=== PATIENT | female | born 1970 | race African-American/Black ===

== ENCOUNTER 2018-01-23 08:51 | Inpatient (IN) ==
[2018-01-23 09:56] LABS: BILIRUBIN URINE NEGATIVE (NEGATIVE); BLOOD URINE NEGATIVE (NEGATIVE); CLARITY CLEAR (CLEAR); COLOR YELLOW; GLUCOSE URINE NEGATIVE (NEGATIVE); KETONE URINE TRACE mg/dL (NEGATIVE); LEUKOCYTES URINE NEGATIVE (NEGATIVE); NITRITE URINE NEGATIVE (NEGATIVE); PROTEIN URINE 1+(30 mg/dL) mg/dL (NEGATIVE); SP GRAVITY URINE 1.015; UROBILINOGEN URINE NORMAL
[2018-01-23 10:02] LABS: URINE BACTERIA 1+ /HFP; URINE EPITHELIAL CELLS >10 /HPF (<10); URINE WBC <10 /HPF (<10); URINE YEAST PRESENT /HPF
[2018-01-23 10:03] LABS: URINE SOURCE CLEAN CATCH
[2018-01-23 10:11] LABS: AGAP 14; BASO# 0.01 X1000 (0.0-0.2); BASO% 0.1 % (0.0-0.8); BUN 5 mg/dL (8-22); CHLORIDE 101 mmol/L (98-107); EOS# 0.03 X1000 (0.0-0.7); EOS% 0.2 % (0.0-10.0); GLUCOSE 111 mg/dL (70-104); HEMATOCRIT 34.8 % (37.0-47.0); IMM GRAN# 0.03 X1000 (0.0-0.04); IMM GRAN% 0.2 % (0.0-0.5); LYMPH# 1.43 X1000 (1.2-3.4); LYMPH% 9.4 % (20.5-51.1); MCH 22.1 PG (27-31); MCHC 31.6 g/dL (33-37); MCV 69.9 FL (81-99); MONO# 1.31 X1000 (0.11-0.59); MONO% 8.6 % (1.7-9.3); MPV 10.3 FL (7.4-10.4); NEUT# 12.47 X1000 (1.4-6.5); NEUT% 81.5 % (42.2-75.2); PLT 220 X1000 (130-400); POTASSIUM 3.4 mmol/L (3.5-5.1); RBC 4.98 XMIL (4.2-5.4); RDW 21.3 % (11.5-14.5); SODIUM 139 mmol/L (136-145); TCO2 23 mmol/L (25-35); WBC 15.28 X1000 (4.8-10.8)
[2018-01-23 10:12] LABS: ALBUMIN 4.1 g/dL (3.5-5.0); ALKALINE PHOSPHATASE 97 U/L (32-104); AMYLASE 40 U/L (20-200); CALCIUM 9.1 mg/dL (8.8-10.2); COSMO 275; CREATININE 0.5 mg/dL (0.5-0.9); GOT 15 U/L (10-30); GPT 13 U/L (10-36); LIPASE 24 U/L (13-60); TOTAL PROTEIN 7.6 g/dL (6.3-8.3)
[2018-01-23] MEDS ORDERED: NS 1,000 ML IV ONE ×2 (10:14→13:31)
--- NOTE | 2018-01-23 11:20 | Diag Imaging Result Doc PS360 ---
EXAM: CT ABD/PELVIS W/IV CONT ONLY HISTORY: abdominal pain TECHNIQUE: CT abdomen and pelvis with intravenous contrast COMPARISON: 06/28/2011 FINDINGS: The gallbladder, spleen, pancreas, and adrenal glands are normal. There are several tiny scattered hepatic cysts. Normal enhancement of the kidneys. There is mild left-sided hydronephrosis. This is slightly more prominent than on the prior study. Normal aorta. There are inflammatory changes about the ascending colon. There is a small area of focal perforation. No abscess. No distinct mass. Normal appendix. No bowel obstruction. The uterus is enlarged containing multiple partially calcified fibroids. The uterus measures over 12 cm in length. The appearance is fairly similar to that of the prior exam. There are also small bilateral ovarian cysts. The largest arises from the right ovary measuring 3.2 cm. Urinary bladder is mildly distended. IMPRESSION: 1.Focal perforation adjacent to the ascending colon. 2.Multilobulated uterus containing fibroids 3.Ovarian cysts ER called. This exam was performed using automated exposure control, adjustment of mA or kV according to patient size, and/or use of iterative reconstruction technique. Electronically signed by Stewart Gomez 01/23/2018 11:18 AM
[2018-01-23] MEDS ORDERED: MORPHINE IV ONE (12:12)
[2018-01-23] MEDS ORDERED: ZOFRAN ONE (12:22)
[2018-01-23] MEDS ORDERED: ZOFRAN IV ONE (12:27)
[2018-01-23] MEDS ORDERED: ZOFRAN IV PRN (13:31)
[2018-01-23] MEDS ORDERED: NS 0 ML ONE (13:54)
[2018-01-23] MEDS: ZOSYN 3.375 GM in NS 50 ML IV SCH ×2 (14:13→20:21)
--- NOTE | 2018-01-23 14:19 | HISTORY AND PHYSICAL ---
CHIEF COMPLAINT: Abdominal pain. HISTORY OF PRESENT ILLNESS: This is a 47-year-old female who has a three-day history of constant, moderately severe right-sided abdominal pain with associated nausea and chills, but no fever. No vomiting. She has also had some diarrhea previously. She has never had a similar episode and normally has soft, brown bowel movements regularly. She has never had a colonoscopy. She has not noticed any blood in her stool. Her pain is worsened with lying on the right side, lessened with morphine and lying still. PAST MEDICAL HISTORY: Anemia. PAST SURGICAL HISTORY: C section. ALLERGIES: None. She has had diarrhea after Augmentin in the past. HOME MEDICATIONS: None. FAMILY HISTORY: Mother had colon cancer. SOCIAL HISTORY: She smokes ten cigarettes per day and drinks one or two alcoholic drinks occasionally. No illicit drug use. REVIEW OF SYSTEMS: Ten systems reviewed and negative except as noted above. PHYSICAL EXAM: VITAL SIGNS: Temperature 99.0, pulse 84, respirations 18, blood pressure 120/85, O2 saturation 98%. GENERAL: Well developed, well nourished female in no distress. She looks her stated age. HEENT: Normocephalic, atraumatic. Extraocular muscles intact. Pupils equal, round, and reactive to light. Sclerae anicteric. Moist mucous membranes. NECK: Supple. No thyromegaly. LYMPH: No cervical, supraclavicular, or periumbilical lymph nodes appreciated. CV: Regular rate and rhythm. RESPIRATORY: Bilateral equal breath sounds. No work of breathing. GI: Soft. Nondistended. No organomegaly or mass. She has moderate tenderness on the right side of her abdomen. No rebound or guarding. No generalized peritonitis. EXTREMITIES: No clubbing, cyanosis, or edema. SKIN: Warm, dry, and no rash. LABORATORY DATA: White blood cell count 15,000, hemoglobin 11, hematocrit 34.8, platelet count 220,000. Sodium 139, potassium 3.4, chloride 101, CO2 23, BUN 5, creatinine 0.5, glucose 111. Liver function tests normal. Amylase and lipase normal. Urinalysis negative. Urine test negative. IMAGING: Abdominal/pelvis CT scan today shows inflammatory changes around the ascending colon with a focal area of perforation. No large amount of free fluid or free air. No abscess. No definitive mass. Normal appendix. No bowel obstruction. There are bilateral ovarian cysts and a fibroid uterus. ASSESSMENT AND PLAN: A 47-year-old female with perforated viscus. Appears to be a contained microperforation. Etiology is unknown. She does admit to eating some fish within the last week but it was advertised as boneless. We are planning initial conservative management with bowel rest, starting her on Zosyn and giving her intravenous fluids. If she shows clinical improvement enough to resolve her symptoms, then she would eventually need a followup colonoscopy. If she does not improve or worsens, she will need exploratory laparotomy with probable right hemicolectomy. cc: Benedict Pizano MD
[2018-01-23] MEDS ORDERED: TYLENOL ONE (14:27)
[2018-01-23] MEDS ORDERED: TYLENOL PR ONE ×2 (14:38→14:41)
[2018-01-23] MEDS ORDERED: BLISTEX MEDICATED BERRY LIP BALM TOP PRN (15:37)
[2018-01-23 17:05] LABS: EOS# 0.04 X1000 (0.0-0.7); EOS% 0.3 % (0.0-10.0); HEMATOCRIT 31.9 % (37.0-47.0); HEMOGLOBIN 10.1 g/dL (12.0-16.0); IMM GRAN# 0.03 X1000 (0.0-0.04); IMM GRAN% 0.3 % (0.0-0.5); LYMPH# 2.05 X1000 (1.2-3.4); LYMPH% 17.8 % (20.5-51.1); MCH 22.3 PG (27-31); MCHC 31.7 g/dL (33-37); MCV 70.4 FL (81-99); MONO# 0.83 X1000 (0.11-0.59); MONO% 7.2 % (1.7-9.3); MPV 10.7 FL (7.4-10.4); NEUT# 8.58 X1000 (1.4-6.5); NEUT% 74.4 % (42.2-75.2); PLT 191 X1000 (130-400); RBC 4.53 XMIL (4.2-5.4); RDW 21.1 % (11.5-14.5); WBC 11.53 X1000 (4.8-10.8)
[2018-01-23 17:16] LABS: AGAP 14; BUN 4 mg/dL (8-22); CALCIUM 8.8 mg/dL (8.8-10.2); CHLORIDE 102 mmol/L (98-107); COSMO 274; CREATININE 0.6 mg/dL (0.5-0.9); ESTIMATED GFR > 60; GLUCOSE 88 mg/dL (70-104); POTASSIUM 3.1 mmol/L (3.5-5.1); SODIUM 139 mmol/L (136-145); TCO2 23 mmol/L (25-35)
[2018-01-23] MEDS: MORPHINE IV PRN (18:27)
[2018-01-24] MEDS: ZOSYN 3.375 GM in NS 50 ML IV SCH ×4 (02:38→20:54)
[2018-01-24 06:44] LABS: BASO# 0.01 X1000 (0.0-0.2); BASO% 0.1 % (0.0-0.8); EOS# 0.06 X1000 (0.0-0.7); EOS% 0.5 % (0.0-10.0); HEMATOCRIT 31.4 % (37.0-47.0); HEMOGLOBIN 9.7 g/dL (12.0-16.0); LYMPH# 1.49 X1000 (1.2-3.4); LYMPH% 13.4 % (20.5-51.1); MCH 21.8 PG (27-31); MCHC 30.9 g/dL (33-37); MCV 70.7 FL (81-99); MONO# 0.79 X1000 (0.11-0.59); MONO% 7.1 % (1.7-9.3); NEUT% 78.9 % (42.2-75.2); PLT 199 X1000 (130-400); RBC 4.44 XMIL (4.2-5.4); RDW 21.1 % (11.5-14.5); WBC 11.15 X1000 (4.8-10.8)
--- NOTE | 2018-01-24 06:45 | GENERAL SURGERY PROGRESS NOTE ---
DATE: 01/24/2018 SUBJECTIVE: The patient says she still hurts on the right side but is slightly better than yesterday. No nausea or vomiting overnight. OBJECTIVE: Vital Signs: Temperature 100.0 degrees, pulse 85, respirations 18, blood pressure 117/54, O2 saturation 95%. General: She is alert and oriented x4. No acute distress. CV: Regular rate and rhythm. Respiratory: Bilateral breath sounds. No work of breathing. Gastrointestinal: Soft and nondistended. Mildly tender on the right side of the abdomen. No rebound or guarding. Laboratory: Pending today. ASSESSMENT AND PLAN: A 47-year-old female with micro-contained perforation of the right colon of unclear etiology. She seems to be mildly improved. We will continue with bowel rest and intravenous antibiotics. I will follow up her x-ray and labs today, and may let her have sips of clears later. cc: Benedict Pizano MD
[2018-01-24 06:53] LABS: AGAP 13; BUN 5 mg/dL (8-22); CALCIUM 8.8 mg/dL (8.8-10.2); CHLORIDE 102 mmol/L (98-107); COSMO 274; CREATININE 0.5 mg/dL (0.5-0.9); ESTIMATED GFR > 60; GLUCOSE 91 mg/dL (70-104); POTASSIUM 3.3 mmol/L (3.5-5.1); SODIUM 139 mmol/L (136-145); TCO2 24 mmol/L (25-35)
--- NOTE | 2018-01-24 06:59 | PROVIDER DOCUMENTATION ---
This chart was entered by Connie Raya Scribe, acting as scribe for Chantel Gillis CRNP. HPI-Abdominal Pain/GI Problem - General Chief Complaint: Abdominal Pain Stated Complaint: ABD/SIDE PAIN Time Seen by Provider: 01/23/18 09:20 Source: patient Allergies/Adverse Reactions: Patient Allergies Allergy/AdvReac Type Severity Reaction Status Date / Time amoxicillin [From Augmentin] Allergy NAUSEA/VOMI Verified 01/23/18 10:36 TING clavulanic acid Allergy NAUSEA/VOMI Verified 01/23/18 10:36 [From Augmentin] TING Home Medications: Home Medication List Medication Instructions Recorded Confirmed Last Taken Type NK [No Home Medications] 01/23/18 01/23/18 Unknown History - History of Present Illness-ABD Nature of Presenting Problems: Patient is a 47 year old female who presents to the ED with RLQ abdominal pain. Patient states nausea and fever. Patient states symptoms have been present for 3 days. Patient states last BM was this morning. Abdominal Pain Onset Location: reports: RLQ Pain Radiation: reports: no radiation Quality of Pain: reports: pressure Severity in ED: reports: mild Onset/Duration: reports: 3 days ago Timing: reports: still present Activities at Onset: reports: light activity Modifying Factors: improves with: nothing Associated Symptoms: reports: fever/chills (fever), nausea Last BM: this morning Dark Stools Present?: reports: none noticed Rectal Bleeding: reports: none Rectal Pain: reports: none Emesis Description: reports: none Bruising or Bleeding Gums?: No Similar Symptoms Previously?: Yes (present for 3 days) Recently seen or treated by another doctor?: No Review of Systems - Adult - REVIEW OF SYSTEMS - ADULT Constitutional: reports: fever. denies: chills, fatique Eyes: reports: no symptoms reported Ears, Nose, Mouth & Throat: reports: no symptoms reported Cardiovascular: reports: no symptoms reported Respiratory: reports: no symptoms reported Gastrointestinal: reports: abdominal pain (RLQ), nausea. denies: diarrhea, vomiting Genitourinary: reports: no symptoms reported Musculoskeletal: reports: no symptoms reported Integumentary: reports: no symptoms reported Neurological: reports: no symptoms reported Psychiatric: reports: no symptoms reported Endocrine: reports: no symptoms reported Hematologic/Lymphatic: reports: no symptoms reported Allergic/Immunologic: reports: no symptoms reported All Other Systems: Reviewed and Negative Past History - Adult - PAST MEDICAL HISTORY-ADULT Review of Records: reports: Nursing Assessment Review, Medications Reviewed, Social history reviewed & non-contributory. Major Childhood Illnesses: reports: denies history Cardiovascular: reports: denies history Respiratory: reports: denies history Gastrointestinal: reports: denies history Obstetrical/Gynecological: reports: denies history Genitourinary: reports: denies history Musculoskeletal: reports: denies history Neurological: reports: denies history Psychiatric: reports: denies history Endocrine/Immune: reports: denies history Other Conditions: reports: denies history - PRIOR SURGERIES/PROCEDURES Surgical/Procedure History: reports: reviewed, not pertinent - IMMUNIZATION STATUS Childhood Immunizations: See Nurse Assessment Flu Vaccine: See Nurse Assessment - FAMILY HISTORY Family History: reviewed, not pertinent - SOCIAL HISTORY Smoking: denies Substance Use: denies Physical Exam-General - PHYSICAL EXAM-ADULT Initial Vital Signs Reviewed: Yes - CONSTITUTIONAL General Appearance: alert, no apparent distress - EYES Eyes: PERRL/EOMI, pink conjunctivae - HEAD, EARS, NOSE, MOUTH & THROAT HENMT: normal ENT inspection - NECK Neck: normal inspection - RESPIRATORY Respiratory: chest non-tender, lungs clear, normal breath sounds - CARDIOVASCULAR Cardiovascular: normal peripheral pulses, regular rate, rhythm - GASTROINTESTINAL (ABDOMEN) Abdominal Exam: normal bowel sounds, soft, tenderness (RLQ) - MUSCULOSKELETAL Extremity: non-tender, normal gait, normal inspection - SKIN Integumentary: normal color, normal turgor, warm/dry - NEUROLOGIC Neurologic: grossly normal, no motor/sensory deficits - PSYCHIATRIC Psych/Mental Status: normal mood/affect, oriented x 3 Progress - PLAN OF CARE/RESULTS Progress/Plan/Lab Results: Vital Signs - 8 hr 01/23/18 09:10 Temperature 99.0 F Pulse Rate 88 Respiratory Rate 18 Blood Pressure 138/66 O2 Sat by Pulse Oximetry 96 1140: Dr. Dowling aware of ABD CT results. 1230: Dr Pizano at bedside with patient. will admit to Dr Pizano and send to [facility] 1245: Dr Dowling aware of patient's transfer to [facility]. Result Diagrams: 01/24/18 06:00 01/24/18 06:00 - CT/MRI 1 CT Study: Abdomen, Pelvis Impression: See EMR Report (EXAM: CT ABD/PELVIS W/IV CONT ONLY HISTORY: abdominal pain TECHNIQUE: CT abdomen and pelvis with intravenous contrast COMPARISON: 06/28/2011 FINDINGS: The gallbladder, spleen, pancreas, and adrenal glands are normal. There are several tiny scattered hepatic cysts. Normal enhancement of the kidneys. There is mild left-sided hydronephrosis. This is slightly more prominent than on the prior study. Normal aorta. There are inflammatory changes about the ascending colon. There is a small area of focal perforation. No abscess. No distinct mass. Normal appendix. No bowel obstruction. The uterus is enlarged containing multiple partially calcified fibroids. The uterus measures over 12 cm in length. The appearance is fairly similar to that of the prior exam. There are also small bilateral ovarian cysts. The largest arises from the right ovary measuring 3.2 cm. Urinary bladder is mildly distended. IMPRESSION: 1.Focal perforation adjacent to the ascending colon. 2.Multilobulated uterus containing fibroids 3.Ovarian cysts ER called. This exam was performed using automated exposure control, adjustment of mA or kV according to patient size, and/or use of iterative reconstruction technique. Electronically signed by Stewart Gomez 01/23/2018 11:18 AM 1118 Interpreting Physician: Stewart Gomez MD Dictated Date/Time: 01/23/18 1108 cc: Chantel Gillis; Keanu Cardoso MD) - CONSULTS/PCP/HOSPITALIST Notification #1 *Consult/PCP/Hospitalist*: Dr. Pizano Time Discussed: 12:13 Reason/Comments: Evelia Gillis NP, consulted with Dr. Pizano about patient. Consult Disposition: Will see in ED Departure - Departure Date of Disposition Decision: 01/23/18 Time of Disposition Decision: 12:41 DIAGNOSIS: Perforated abdominal viscus Disposition: OTHER 70 Certified Medical Emergency: Emergent Condition: Stable - Critical Care Note This patient required my direct & personal management of CC.: Yes Total Time (mins): 31 Critical Care Statement: This patient required my direct personal management to treat or rule out processes, the absence of which, could potentiallly result in sudden, clinically significant life or limb threatening deterioration. Attestation - Physician/ STEFFEN Attestation Patient care was provided by Advanced Practice Provider:: Yes Advanced Practice Provider:: Chantel Gillis Advanced Practice Provider documentation review:: The Mid-level provider documentation, treatment plan and medical decision making was reviewed by the physician who agrees with all treatment and medical decision making by the MLP. The physician spent face to face time with patient:: No Advanced Practice Provider documentation review:: Supervising physician onsite and consulted in the evaluation and care of this patient. The physician did not have a face to face encounter with the patient. This chart was documented by the indicated scribe, (Connie Raya Scribe) and accurately reflects the services I performed and decisions made by Carlin martinez Jacqueline Kay, CRNP, as attested by the provider's signature.
--- NOTE | 2018-01-24 08:03 | Diag Imaging Result Doc PS360 ---
EXAM: FLAT/UPRIGHT ABD/1 VIEW CHEST HISTORY: perforated viscus TECHNIQUE: Flat and upright with chest, three views COMPARISON: Chest compared 02/26/2011 FINDINGS: There is bibasilar atelectasis versus small infiltrates. Heart is borderline mildly prominent. There is a small right-sided pleural effusion. No free air beneath the diaphragm. The bowel loops are not dilated. No organomegaly. There is likely a large calcified uterine fibroid. IMPRESSION: Basilar infiltrates versus atelectasis as well as a small right pleural effusion. Electronically signed by Stewart Gomez 01/24/2018 8:01 AM
[2018-01-24] MEDS: NS 1,000 ML IV SCH (08:22)
[2018-01-24] MEDS: MORPHINE IV PRN ×2 (08:22→20:54)
[2018-01-25] MEDS: ZOSYN 3.375 GM in NS 50 ML IV SCH ×4 (02:04→20:59)
[2018-01-25] MEDS: NS 1,000 ML IV SCH (08:47)
[2018-01-25] MEDS ORDERED: ZOSYN ONE (08:56)
--- NOTE | 2018-01-25 12:26 | GENERAL SURGERY PROGRESS NOTE ---
DATE: 01/25/2018 SUBJECTIVE: The patient is gradually feeling better, but continues to have some right-sided pain. No nausea or vomiting. She has had a bowel movement. OBJECTIVE: Vital Signs: She is afebrile. Her vital signs are stable. General: She is awake, alert, oriented x3. No acute distress. Cardiovascular: Regular rate and rhythm. Respiratory: Bilateral equal breath sounds. No work of breathing. Gastrointestinal: Soft, nondistended. Mildly tender on the right side. No rebound or guarding. ASSESSMENT AND PLAN: A 47-year-old female with right-sided microperforation of the colon. Etiology is unclear. She is on Zosyn. We will start her on a clear liquid diet and advance her to fulls today. If her symptoms continue to improve, I anticipate discharge in the next 48 hours. cc: Benedict Pizano MD
[2018-01-26] MEDS: ZOSYN 3.375 GM in NS 50 ML IV SCH ×2 (02:04→08:34)
[2018-01-26 06:29] LABS: BASO# 0.02 X1000 (0.0-0.2); BASO% 0.3 % (0.0-0.8); EOS# 0.25 X1000 (0.0-0.7); EOS% 4.2 % (0.0-10.0); HEMATOCRIT 30.6 % (37.0-47.0); HEMOGLOBIN 9.5 g/dL (12.0-16.0); LYMPH# 1.53 X1000 (1.2-3.4); LYMPH% 25.8 % (20.5-51.1); MCH 22.3 PG (27-31); MCV 71.8 FL (81-99); MONO# 0.56 X1000 (0.11-0.59); MONO% 9.5 % (1.7-9.3); MPV 11.1 FL (7.4-10.4); NEUT# 3.56 X1000 (1.4-6.5); NEUT% 60.2 % (42.2-75.2); PLT 220 X1000 (130-400); RBC 4.26 XMIL (4.2-5.4); RDW 20.5 % (11.5-14.5); WBC 5.92 X1000 (4.8-10.8)
[2018-01-26 06:46] LABS: AGAP 11; BUN 5 mg/dL (8-22); CALCIUM 8.7 mg/dL (8.8-10.2); CHLORIDE 104 mmol/L (98-107); COSMO 280; CREATININE 0.5 mg/dL (0.5-0.9); ESTIMATED GFR > 60; GLUCOSE 83 mg/dL (70-104); POTASSIUM 3.6 mmol/L (3.5-5.1); SODIUM 142 mmol/L (136-145); TCO2 27 mmol/L (25-35)
[2018-01-26] MEDS: NS 1,000 ML IV SCH (08:38)
[2018-01-26] MEDS ORDERED: SALINE LOCK IV FLUID XX ONE (08:54)
[2018-01-26] MEDS ORDERED: PHENERGAN IM PRN (08:54)
[2018-01-26] MEDS ORDERED: NORCO-5 PO PRN (08:54)
[2018-01-26] MEDS: LEVAQUIN PO SCH (10:45)
[2018-01-26] MEDS: FLAGYL PO SCH ×2 (14:29→21:00)
--- NOTE | 2018-01-26 14:38 | GENERAL SURGERY PROGRESS NOTE ---
DATE: 01/26/2018 SUBJECTIVE: She is feeling better with significantly lower pain, now 3/10 on a scale. She denies nausea or vomiting. She is tolerating a liquid diet and passing gas, and having some liquid stool. She is ambulating better. OBJECTIVE: Vital Signs: She is afebrile. Vital signs are stable. General: She is awake, alert, and oriented x4. No acute distress. Cardiovascular: Regular rate and rhythm. Respiratory: No work of breathing. Gastrointestinal: Soft. Mildly tender in the right side of the abdomen. No rebound or guarding. LABORATORY DATA: White blood cell count 5.9, hemoglobin 9.5, hematocrit 30.6. Electrolytes reviewed and unremarkable. ASSESSMENT AND PLAN: A 47-year-old female with right-sided microperforation of the colon of unclear etiology. She is clinically improving. I will switch her to oral pain medicine today as needed. We will also switch her from Zosyn to Levaquin and Flagyl by mouth, and I will advance her to a GI soft diet. If she has no setbacks overnight, then she will be ready for discharge tomorrow and will follow up with me next week. We are planning future colonoscopy as an outpatient. cc: Benedict Pizano MD
[2018-01-27] MEDS: FLAGYL PO SCH ×2 (03:04→08:36)
[2018-01-27 07:41] VITALS: BP 117/67
[2018-01-27] MEDS: LEVAQUIN PO SCH (08:36)
--- NOTE | 2018-01-27 19:52 | GENERAL SURGERY PROGRESS NOTE ---
DATE: 01/27/2018 TIME: 12:30 p.m. She is doing well. Her pain is significantly improved. Her bowels had moved. She is ready to go home. The plan is to let her go home. She will call Dr. Pizano's office on the for followup instructions. Will allow her to return to work on Monday the . cc: MD Benedict De Dios MD
--- NOTE | 2018-03-03 17:33 | DISCHARGE SUMMARY ---
ADMISSION DATE: 01/23/2018 DISCHARGE DATE: 01/27/2018 ADMITTING PHYSICIAN: Benedict Pizano MD. ADMITTING DIAGNOSIS: 1. Perforated viscus. 2. Chronic anemia. DISCHARGE DIAGNOSIS: 1. Perforated viscus. 2. Chronic anemia. HOSPITAL COURSE: The patient presented with right-sided abdominal pain, nausea and chills. Emergency room workup revealed a leukocytosis, a tender abdomen and a CT scan showing inflammation and a focal area of perforation around the ascending colon. She was admitted and conservative broad-spectrum antibiotic therapy was instituted. She slowly improved and we were able to start her on a diet and advance her. She was afebrile at the time of discharge. Her leukocytosis resolved. She was hemodynamically stable and her clinical exam improved significantly to minimal pain and tenderness. INSTRUCTIONS: Continue her antibiotics as described. Advance her diet to soft diet as tolerated. She may shower. She should follow up with Dr. Pizano in 1 to 2 weeks after discharge for future colonoscopy as an outpatient. She should return to the emergency room or call Dr. Pizano's office for any recurrent severe pain, vomiting, fevers, or other concerns. DISCHARGE MEDICATIONS: Flagyl 500 mg p.o. q.6 hours for 7 days, Levaquin 750 mg p.o. daily for 7 days, [place] 5 mg p.o. q.6 hours p.r.n. pain. Thank you indication. cc: Keanu Cardoso MD
== END 2018-01-27 14:35 | disposition home or self-care (01) | DRG 395 ==
LOC: P.ED 08:51 → 4N 08:52
PROVIDERS: ADMIT Surgery; ATTEND Surgery
CPT/HCPCS: 74022; 74177; 80048; 80053; 81001; 81025; 82150; 83690; 85025; 87040; 96361; 96374; 96375; 99285; A9270; J2270; J2405; J2543; J7030; J7050; Q9967